=== PATIENT | male | born 1950 | race Caucasian/White ===

== ENCOUNTER 2016-11-05 19:49 | Emergency (ER) | payer OTHER ==
[~2016-11-05] VITALS: Ht 177.8 cm; Wt 96.6 kg
[2016-11-05 20:05] VITALS: BP 213/94; PULSE 116; TEMP 37.3; O2SAT 98; Ht 177.8 cm; Wt 96.6 kg
--- NOTE | 2016-11-05 20:45 | EMERGENCY ROOM VISIT NOTE ---
ED Visit Note First contact with patient: 20:23 CHIEF COMPLAINT: Toothache HISTORY OF PRESENT ILLNESS: This 66-year-old [place] male patient presents to the ER stating that he wants some of his left upper teeth pulled. The patient speaks very broken O[place]i. He denies any severe pain or facial swelling. The patient denies any fever. The patient states that he has pulled teeth out on his own in the past. He states that he went to a doctor and they gave him Novocain and then he went home and pulled the tooth out himself. [place] He is unsure how things are done in the [place]. REVIEW OF SYSTEMS: 6 system review was performed and was negative unless stated otherwise in history of present illness. PMH: The patient is healthy; there is no significant medical or surgical history. SOCIAL HISTORY: Patient denies any tobacco or alcohol use PHYSICAL EXAM: Vital Signs: Were reviewed Reviewed Nurse's notes. GEN.: 66-year -old [place] male appears in no acute distress. MENTAL Status: Alert and oriented 3. The patient does not speak O[place]i very well. MOUTH: The patient' s teeth are from the gumline. His teeth do not feel tender to percussion. There is some decay of all teeth throughout. FACE: No erythema or edema noted. NECK: Supple, no lymphadenopathy noted EMERGENCY COURSE: I spent a long period of time trying to explain to this patient that we do not pull teeth in the emergency room and that he needs to see is a dentist. He then requested that I directed to a dentist who couldn't pull his teeth. I had the leather case finisher speak with the patient to give him options. The patient was then discharged home in stable condition. DIAGNOSIS: Dental caries DISCHARGE INSTRUCTIONS & TREATMENT: Go to a dentist as directed by the leather case finisher today to get your teeth removed. Current/Historical Medications No Active Prescriptions or Reported Meds Allergies Coded Allergies: No Known Allergies (Unverified , 11/05/16) pt claims he never took any medication Vital Signs Date Time Temp Pulse Resp B/P Pulse Ox O2 Delivery O2 Flow Rate FiO2 11/05/16 20:05 37.3 116 18 213/94 98 Room Air Departure Information Prescriptions No Active Prescriptions or Reported Meds Referrals No Doctor, Assigned (PCP) Patient Instructions My [facility]
== END 2016-11-05 21:03 | disposition home or self-care (01) ==
LOC: EDBD → C.EDB 19:51 → EDBD 19:51 → MERGE 19:51 → C.EDD 21:03
DX: K02.9 Dental caries, unspecified (principal)